=== PATIENT | female | born 1965 | race Caucasian/White ===

== ENCOUNTER 2016-10-29 08:54 | Emergency (ER) | payer MEDICARE, OTHER ==
[~2016-10-29] VITALS: Ht 162.6 cm; Wt 90.0 kg
[~2016-10-29 08:54] MED LIST: ALBU8.5H3 IH; BECL8.7A6; CLON1TAB3 PO; IBUP-1547 PO; OLAN10TA3 PO; SIMV-260 PO; TIOT185 IH; TRIL8 GT
[2016-10-29] MEDS ORDERED: FLUP5 PO (09:26)
[2016-10-29] MEDS ORDERED: DIVA500T35 PO (09:26)
[2016-10-29] MEDS ORDERED: FAMO20 PO ×2 (09:26)
[2016-10-29] MEDS ORDERED: ACET-2247 PO (09:26)
[2016-10-29] MEDS ORDERED: DIPH25 PO (09:26)
[2016-10-29] MEDS ORDERED: LOPE2 PO (09:26)
[2016-10-29 09:28] VITALS: BP 121/79
[2016-10-29] MEDS ORDERED: IPRATROPIUM BROMIDE 0.5 MG/2.5 ML NEB SOLUTION NEB ONE (09:30)
[2016-10-29] MEDS ORDERED: ALBUTEROL SULFATE 2.5 MG/0.5 ML NEB SOLUTION NEB ONE (09:30)
[2016-10-29] MEDS ORDERED: PredniSONE 20 MG TABLET PO ONE (09:30)
== END 2016-10-29 10:11 | disposition left against medical advice (07) ==
LOC: EMS 08:56
DX: J44.9 Chronic obstructive pulmonary disease, unspecified (principal); F17.210 Nicotine dependence, cigarettes, uncomplicated; Z90.49 Acquired absence of other specified parts of digestive tract; Z98.84 Bariatric surgery status; Z88.1 Allergy status to other antibiotic agents; Z91.013 Allergy to seafood
CPT/HCPCS: 99283; J7512

== ENCOUNTER 2016-11-25 17:15 | Emergency (ER) | payer MEDICARE, OTHER ==
[~2016-11-25] VITALS: Ht 157.5 cm; Wt 81.8 kg
[~2016-11-25 17:15] MED LIST changes: +ACET-2247 PO; -BECL8.7A6; +BECL8.7A6 IH; +DIPH25 PO; +DIVA500T35 PO; +FAMO20 PO; -IBUP-1547 PO; +LOPE2 PO; -SIMV-260 PO; -TRIL8 GT; +TRIL8 PO
[2016-11-25] MEDS ORDERED: ALBUTEROL SULFATE 2.5 MG/0.5 ML NEB SOLUTION NEB ONE (19:15)
[2016-11-25] MEDS ORDERED: DiphenhydrAMINE HCL 25 MG CAPSULE PO ONE (19:15)
[2016-11-25] MEDS ORDERED: IPRATROPIUM BROMIDE 0.5 MG/2.5 ML NEB SOLUTION NEB ONE (19:15)
[2016-11-25] MEDS ORDERED: ClonazePAM 1 MG TABLET PO ONE (19:15)
[2016-11-25] MEDS ORDERED: PredniSONE 20 MG TABLET PO ONE (19:15)
[2016-11-25] MEDS ORDERED: 0.9% SODIUM CHLORIDE 5 ML NEB SOLUTION NEB ONE (20:50)
[2016-11-25 21:09] VITALS: BP 126/75
== END 2016-11-25 21:11 | disposition home or self-care (01) ==
LOC: EMS 17:16
DX: J45.901 Unspecified asthma with (acute) exacerbation (principal); F41.9 Anxiety disorder, unspecified; F17.210 Nicotine dependence, cigarettes, uncomplicated; Z76.0 Encounter for issue of repeat prescription; Z88.1 Allergy status to other antibiotic agents; Z88.8 Allergy status to other drugs, medicaments and biological substances; Z91.013 Allergy to seafood
CPT/HCPCS: 71010; 94640; 99284; 99406; J7512

== ENCOUNTER 2016-12-09 21:27 | Emergency (ER) | payer MEDICARE, OTHER ==
[~2016-12-09] VITALS: Ht 162.6 cm; Wt 90.9 kg
[~2016-12-09 21:27] MED LIST changes: -LOPE2 PO
[2016-12-09] MEDS ORDERED: TraMADol HCL 50 MG TABLET PO ONE (22:30)
[2016-12-09 23:00] VITALS: BP 131/84
== END 2016-12-09 23:08 | disposition home or self-care (01) ==
LOC: EMS 21:29
DX: M25.561 Pain in right knee (principal); F31.9 Bipolar disorder, unspecified; G89.29 Other chronic pain; F17.210 Nicotine dependence, cigarettes, uncomplicated; J44.9 Chronic obstructive pulmonary disease, unspecified; F41.9 Anxiety disorder, unspecified; Z90.49 Acquired absence of other specified parts of digestive tract; X58.XXXA Exposure to other specified factors, initial encounter; Y93.9 Activity, unspecified; Y92.9 Unspecified place or not applicable; Y99.9 Unspecified external cause status
CPT/HCPCS: 99283; 99406

== ENCOUNTER 2016-12-16 20:05 | Emergency (ER) | payer MEDICARE, OTHER ==
[~2016-12-16] VITALS: Ht 162.6 cm; Wt 100.0 kg
[2016-12-16] MEDS ORDERED: ALBUTEROL SULFATE 5 MG/ML 20 ML NEB SOLN [BULK] NEB ONE (20:30)
[2016-12-16] MEDS ORDERED: IPRATROPIUM BROMIDE 0.5 MG/2.5 ML NEB SOLUTION NEB ONE (20:30)
[2016-12-16] MEDS ORDERED: 0.9% SODIUM CHLORIDE 5 ML NEB SOLUTION NEB ONE (20:32)
[2016-12-16 20:56] LABS: BASOPHILS # (AUTO) 0.04 K/uL (0.00-0.20); BASOPHILS % (AUTO) 0.4 % (0.0-2.0); EOSINOPHILS # (AUTO) 0.08 K/uL (0.00-0.70); EOSINOPHILS % (AUTO) 0.85 % (1.0-6.0); HEMOGLOBIN 14.8 g/dL (12.0-16.0); LYMPHOCYTES # (AUTO) 3.7 K/uL (1.0-4.8); LYMPHOCYTES % (AUTO) 38.4 % (22.0-44.0); MEAN CORPUSCULAR HEMOGLOBIN 31.2 pg (26.0-34.0); MEAN CORPUSCULAR HGB CONC 33.6 G/dL (31.0-37.0); MEAN CORPUSCULAR VOLUME 93 fL (80-100); MONOCYTES # (AUTO) 0.8 K/uL (0.1-1.0); NEUTROPHILS % (AUTO) 52.5 % (40.0-70.0); PLATELET COUNT (AUTO) 263 K/uL (150-450); RED BLOOD CELL COUNT(AUTO) 4.74 MIL/uL (4.00-5.20); RED CELL DISTRIBUTION WIDTH 15.2 % (11.5-14.5); WHITE BLOOD COUNT (AUTO) 9.6 K/uL (4.5-11.0)
[2016-12-16 21:13] LABS: ANION GAP 6 mmol/L (8-16); CARBON DIOXIDE 34 mmol/L (22-29); CHLORIDE 97 mmol/L (98-107); CREATININE 0.77 mg/dL (0.60-1.30); GLOMERULAR FILTR. RATE CALC > 60 mL/min (>60); POTASSIUM 3.2 mmol/L (3.5-5.1); SODIUM SERUM 137 mmol/L (136-145); UREA NITROGEN, BLOOD 6 mg/dL (7-18)
[2016-12-16 21:17] LABS: ALANINE AMINOTRANSFERASE 17 U/L (12-78); ALBUMIN 3.1 g/dL (3.4-5.0); ASPARTATE AMINOTRANSFERASE 13 U/L (15-37); BILIRUBIN,TOTAL 0.3 mg/dL (0.1-1.0); TOTAL PROTEIN, SERUM 7.1 g/dL (6.4-8.2)
[2016-12-16] MEDS ORDERED: POTASSIUM CHLORIDE 20 MEQ ER TABLET PO ONE (21:30)
[2016-12-16 21:34] VITALS: BP 132/77
== END 2016-12-16 21:36 | disposition home or self-care (01) ==
LOC: EMS 20:07
DX: J44.9 Chronic obstructive pulmonary disease, unspecified (principal); J45.909 Unspecified asthma, uncomplicated; F17.210 Nicotine dependence, cigarettes, uncomplicated; I48.91 Unspecified atrial fibrillation; Z98.84 Bariatric surgery status; Z88.8 Allergy status to other drugs, medicaments and biological substances; Z88.1 Allergy status to other antibiotic agents; Z91.013 Allergy to seafood
CPT/HCPCS: 93005; 94644; 99285

== ENCOUNTER 2017-09-09 05:22 | Inpatient (IN) | payer MEDICARE, MEDICAID ==
[~2017-09-09] VITALS: Ht 162.6 cm; Wt 80.7 kg
[2017-09-09 06:06] LABS: BASOPHILS % (AUTO) 0.3 % (0.0-2.0); EOSINOPHILS % (AUTO) 0 % (1.0-6.0); HEMATOCRIT 43.8 % (36-46); HEMOGLOBIN 15.3 g/dL (12.0-16.0); LYMPHOCYTES # (AUTO) 1.2 K/uL (1.0-4.8); LYMPHOCYTES % (AUTO) 10.3 % (22.0-44.0); MEAN CORPUSCULAR HEMOGLOBIN 32.3 pg (26.0-34.0); MEAN CORPUSCULAR HGB CONC 34.9 G/dL (31.0-37.0); MEAN CORPUSCULAR VOLUME 93 fL (80-100); MONOCYTES # (AUTO) 0.5 K/uL (0.1-1.0); MONOCYTES % (AUTO) 4.2 % (2.0-9.0); NEUTROPHILS # (AUTO) 9.7 K/uL (1.8-7.7); PLATELET COUNT (AUTO) 328 K/uL (150-450); RED BLOOD CELL COUNT(AUTO) 4.73 MIL/uL (4.00-5.20); RED CELL DISTRIBUTION WIDTH 13.5 % (11.5-14.5)
[2017-09-09 06:07] LABS: NEUTROPHILS % (AUTO) 85.2 % (40.0-70.0)
[2017-09-09 06:11] LABS: AMPHET/METH SCREEN,URINE NEGATIVE (NEGATIVE); BARBITURATE SCREEN, URINE NEGATIVE (NEGATIVE); BENZODIAZEPINES SCREEN,URINE NEGATIVE (NEGATIVE); CANNABINOID SCREEN,URINE NEGATIVE (NEGATIVE); COCAINE SCREEN,URINE NEGATIVE (NEGATIVE); METHADONE SCREEN, URINE NEGATIVE (NEGATIVE); OPIATE SCREEN,URINE NEGATIVE (NEGATIVE)
[2017-09-09 06:12] LABS: PHENCYCLIDINE SCREEN,URINE NEGATIVE (NEGATIVE)
[2017-09-09 06:18] LABS: ANION GAP 5 mmol/L (8-16); CALCIUM, TOTAL 9.8 mg/dL (8.8-10.5); CARBON DIOXIDE 32 mmol/L (22-29); CHLORIDE 100 mmol/L (98-107); CREATININE 0.88 mg/dL (0.60-1.30); GLOMERULAR FILTR. RATE CALC > 60 mL/min (>60); GLUCOSE,RANDOM 98 mg/dL (70-110); POTASSIUM 4.1 mmol/L (3.5-5.1); SODIUM SERUM 137 mmol/L (136-145); UREA NITROGEN, BLOOD 15 mg/dL (7-18)
[2017-09-09 06:23] LABS: ALANINE AMINOTRANSFERASE 38 U/L (12-78); ALBUMIN 3.3 g/dL (3.4-5.0); ALKALINE PHOSPHATASE 59 U/L (46-116); ASPARTATE AMINOTRANSFERASE 16 U/L (15-37); BILIRUBIN,TOTAL 0.2 mg/dL (0.1-1.0); TOTAL PROTEIN, SERUM 7.1 g/dL (6.4-8.2)
[2017-09-09 06:46] LABS: VALPROIC ACID 26 mcg/mL (50-100)
[2017-09-09 09:08] LABS: APPEARANCE,URINE CLOUDY (CLEAR); BILIRUBIN,URINE NEGATIVE (NEGATIVE); GLUCOSE, URINE (UA) NEGATIVE (NEGATIVE); KETONES,URINE NEGATIVE (NEGATIVE); LEUKOCYTE ESTERASE ,URINE SMALL (NEGATIVE); NITRATE,URINE NEGATIVE (NEGATIVE); OCCULT BLOOD,URINE NEGATIVE (NEGATIVE); PROTEIN,URINE SEE CONFIRM (NEGATIVE); UROBILINOGEN,URINE 0.2 mg/dL (<=1.0)
[2017-09-09 09:23] LABS: BACTERIA,URINE None Seen /HPF (None Seen); RBC,URINE None Seen /HPF (0-2); SQUAMOUS EPITHELIAL CELL,UR Few /LPF (None Seen); SULFOSALICYLIC ACID,URINE Trace (Negative)
[2017-09-09] MEDS ORDERED: ALBUTEROL SULFATE 2.5 MG/0.5 ML NEB SOLUTION NEB ONE (11:00)
[2017-09-09] MEDS ORDERED: IPRATROPIUM BROMIDE 0.5 MG/2.5 ML NEB SOLUTION NEB ONE (11:00)
[2017-09-09] MEDS: DiphenhydrAMINE HCL 25 MG CAPSULE PO PRN (14:23)
[2017-09-09] MEDS: QUEtiapine FUMARATE 100 MG TABLET PO PRN ×2 (14:23→19:30)
[2017-09-09] MEDS ORDERED: DiphenhydrAMINE HCL 50 MG/ML VIAL IM ONE (18:00)
[2017-09-09 18:30] VITALS: BP 125/88
[2017-09-09] MEDS: IPRATROPIUM BROMIDE 0.5 MG/2.5 ML NEB SOLUTION NEB PRN (19:25)
[2017-09-09] MEDS: ALBUTEROL SULFATE 2.5 MG/0.5 ML NEB SOLUTION NEB PRN (19:25)
[2017-09-10 01:20] VITALS: BP 123/73
[2017-09-10] MEDS: IPRATROPIUM BROMIDE 0.5 MG/2.5 ML NEB SOLUTION NEB PRN ×5 (01:42→23:12)
[2017-09-10] MEDS: ALBUTEROL SULFATE 2.5 MG/0.5 ML NEB SOLUTION NEB PRN ×5 (01:42→23:12)
[2017-09-10] MEDS: ALBUTEROL SULFATE HFA 90 MCG/PUFF 8 GM INHALER IH PRN ×3 (02:56→14:57)
[2017-09-10] MEDS: DiphenhydrAMINE HCL 25 MG CAPSULE PO PRN ×2 (06:29→16:23)
[2017-09-10 07:31] LABS: CHOL/HDL RATIO 2.6 (3.9-5.7); FREE T4 (FREE THYROXINE) 0.91 ng/dL (0.76-1.46); THYROID STIMULATING HORMONE 7.94 uIU/mL (0.36-3.74)
[2017-09-10] MEDS ORDERED: PETROLATUM,WHITE 71 GM JELLY TP PRN (08:30)
[2017-09-10] MEDS ORDERED: BENZOCAINE/MENTHOL LOZENGE MM PRN (08:30)
[2017-09-10] MEDS ORDERED: CloNIDine HCL 0.1 MG TABLET PO PRN (08:30)
[2017-09-10] MEDS ORDERED: MAG HYDROX/AL HYDROX/SIMETH ES 30 ML SUSPENSION UDCUP PO PRN (08:30)
[2017-09-10] MEDS ORDERED: BACITRACIN 28.4 GM OINTMENT TP PRN (08:30)
[2017-09-10] MEDS ORDERED: BENZOCAINE/MENTHOL LOZENGE [8 LOZENGES/PACKET] MM PRN (08:38)
[2017-09-10] MEDS: BECLOMETHASONE DIPR 40 MCG/PUFF 8.7 GM INHALER IH SCH ×2 (08:51→16:24)
[2017-09-10] MEDS: TIOTROPIUM BROMIDE 18 MCG/INH HANDIHALER [5] IH SCH (08:51)
[2017-09-10] MEDS: FAMOTIDINE 20 MG TABLET PO SCH (08:52)
[2017-09-10 09:09] VITALS: BP 108/65
[2017-09-10] MEDS: PERPHENAZINE 8 MG TABLET PO SCH ×2 (09:15→16:28)
[2017-09-10 16:38] VITALS: BP 125/75
[2017-09-10 19:26] VITALS: BP 108/64
[2017-09-10] MEDS: ACETAMINOPHEN 325 MG TABLET PO PRN (19:26)
[2017-09-10] MEDS: DIVALPROEX SODIUM 500 MG ER TABLET PO SCH (20:23)
[2017-09-10] MEDS: OLANZapine 10 MG TABLET PO SCH (20:23)
[2017-09-10] MEDS: MAGNESIUM HYDROXIDE SUSPENSION 30 ML UDCUP PO PRN (20:24)
[2017-09-11 00:07] VITALS: BP 109/80
[2017-09-11] MEDS: DiphenhydrAMINE HCL 25 MG CAPSULE PO PRN ×3 (00:09→22:48)
[2017-09-11] MEDS: FAMOTIDINE 20 MG TABLET PO SCH (08:45)
[2017-09-11] MEDS: DIVALPROEX SODIUM 500 MG ER TABLET PO SCH ×2 (08:45→20:12)
[2017-09-11] MEDS: BECLOMETHASONE DIPR 40 MCG/PUFF 8.7 GM INHALER IH SCH ×2 (08:58→18:39)
[2017-09-11] MEDS: TIOTROPIUM BROMIDE 18 MCG/INH HANDIHALER [5] IH SCH (08:58)
[2017-09-11] MEDS: NICOTINE 21 MG/24 HOUR PATCH TD SCH (08:59)
[2017-09-11] MEDS: PERPHENAZINE 8 MG TABLET PO SCH ×3 (09:00→19:03)
[2017-09-11 09:27] VITALS: BP 142/85
[2017-09-11] MEDS: LOPERAMIDE HCL 2 MG CAPSULE PO PRN (10:52)
[2017-09-11] MEDS: QUEtiapine FUMARATE 100 MG TABLET PO PRN (10:52)
[2017-09-11] MEDS ORDERED: FluPHENAZine HCL 2.5 MG/ML INJ IM PRN ×2 (12:30→12:45)
[2017-09-11] MEDS: ALBUTEROL SULFATE HFA 90 MCG/PUFF 8 GM INHALER IH PRN ×2 (14:29→19:31)
[2017-09-11] MEDS: IPRATROPIUM BROMIDE 0.5 MG/2.5 ML NEB SOLUTION NEB PRN ×3 (14:43→19:48)
[2017-09-11] MEDS: ALBUTEROL SULFATE 2.5 MG/0.5 ML NEB SOLUTION NEB PRN ×3 (14:43→19:48)
[2017-09-11] MEDS: ACETAMINOPHEN 325 MG TABLET PO PRN ×3 (15:00→23:44)
[2017-09-11 15:10] VITALS: BP 126/88
[2017-09-11 16:55] VITALS: BP 110/82
[2017-09-11 19:01] VITALS: BP 114/80
[2017-09-11] MEDS: OLANZapine 10 MG TABLET PO SCH (20:12)
[2017-09-11 23:40] VITALS: BP 115/79
[2017-09-12] MEDS: ALBUTEROL SULFATE HFA 90 MCG/PUFF 8 GM INHALER IH PRN ×5 (00:36→22:55)
[2017-09-12] MEDS: ZOLPIDEM TARTRATE 10 MG TABLET PO PRN (00:43)
[2017-09-12] MEDS: ALBUTEROL SULFATE 2.5 MG/0.5 ML NEB SOLUTION NEB PRN ×3 (01:09→18:57)
[2017-09-12] MEDS: IPRATROPIUM BROMIDE 0.5 MG/2.5 ML NEB SOLUTION NEB PRN ×3 (01:09→18:57)
[2017-09-12] MEDS: FAMOTIDINE 20 MG TABLET PO SCH (09:55)
[2017-09-12] MEDS: PERPHENAZINE 8 MG TABLET PO SCH ×2 (09:55→15:59)
[2017-09-12] MEDS: DIVALPROEX SODIUM 500 MG ER TABLET PO SCH ×2 (09:55→20:02)
[2017-09-12] MEDS: NICOTINE 21 MG/24 HOUR PATCH TD SCH (09:56)
[2017-09-12] MEDS: TIOTROPIUM BROMIDE 18 MCG/INH HANDIHALER [5] IH SCH (09:58)
[2017-09-12] MEDS: BECLOMETHASONE DIPR 40 MCG/PUFF 8.7 GM INHALER IH SCH ×2 (09:59→15:58)
[2017-09-12] MEDS ORDERED: ClonazePAM 0.5 MG TABLET PO ONE (17:15)
[2017-09-12] MEDS: DiphenhydrAMINE HCL 25 MG CAPSULE PO PRN (17:26)
[2017-09-12 18:24] VITALS: BP 128/84
[2017-09-12] MEDS: OLANZapine 10 MG TABLET PO SCH (20:02)
[2017-09-12 20:03] VITALS: BP 125/78
[2017-09-12] MEDS: ACETAMINOPHEN 325 MG TABLET PO PRN (20:03)
[2017-09-12] MEDS: MAGNESIUM HYDROXIDE SUSPENSION 30 ML UDCUP PO PRN (20:18)
[2017-09-13 00:02] VITALS: BP 113/71
[2017-09-13] MEDS: ZOLPIDEM TARTRATE 10 MG TABLET PO PRN (00:05)
[2017-09-13] MEDS: LEVOTHYROXINE SODIUM 25 MCG TABLET PO SCH (06:55)
[2017-09-13 09:19] VITALS: BP 103/58
[2017-09-13] MEDS: DIVALPROEX SODIUM 500 MG ER TABLET PO SCH ×2 (11:46→20:07)
[2017-09-13] MEDS: FAMOTIDINE 20 MG TABLET PO SCH (11:46)
[2017-09-13] MEDS: PERPHENAZINE 8 MG TABLET PO SCH ×2 (11:46→17:05)
[2017-09-13] MEDS: ALBUTEROL SULFATE HFA 90 MCG/PUFF 8 GM INHALER IH PRN (11:52)
[2017-09-13] MEDS: TIOTROPIUM BROMIDE 18 MCG/INH HANDIHALER [5] IH SCH (11:52)
[2017-09-13] MEDS: BECLOMETHASONE DIPR 40 MCG/PUFF 8.7 GM INHALER IH SCH ×2 (11:52→17:06)
[2017-09-13] MEDS: NICOTINE 21 MG/24 HOUR PATCH TD SCH (11:53)
[2017-09-13] MEDS ORDERED: AZITHROMYCIN 250 MG TABLET PO ONE (12:15)
[2017-09-13] MEDS ORDERED: 0.9% SODIUM CHLORIDE 5 ML NEB SOLUTION NEB ONE (13:54)
[2017-09-13] MEDS: ALBUTEROL SULFATE 2.5 MG/0.5 ML NEB SOLUTION NEB PRN ×2 (13:57→19:44)
[2017-09-13] MEDS: DiphenhydrAMINE HCL 25 MG CAPSULE PO PRN (17:51)
[2017-09-13] MEDS: IPRATROPIUM BROMIDE 0.5 MG/2.5 ML NEB SOLUTION NEB PRN (19:45)
[2017-09-13] MEDS: OLANZapine 10 MG TABLET PO SCH (20:07)
[2017-09-13 20:27] VITALS: BP 105/72
[2017-09-14] MEDS: ALBUTEROL SULFATE HFA 90 MCG/PUFF 8 GM INHALER IH PRN ×3 (03:00→18:12)
[2017-09-14] MEDS: IPRATROPIUM BROMIDE 0.5 MG/2.5 ML NEB SOLUTION NEB PRN ×3 (03:08→20:43)
[2017-09-14] MEDS: ALBUTEROL SULFATE 2.5 MG/0.5 ML NEB SOLUTION NEB PRN ×3 (03:08→20:43)
[2017-09-14] MEDS: LEVOTHYROXINE SODIUM 25 MCG TABLET PO SCH (06:37)
[2017-09-14] MEDS: FAMOTIDINE 20 MG TABLET PO SCH (12:04)
[2017-09-14] MEDS: PERPHENAZINE 8 MG TABLET PO SCH ×2 (12:04→16:10)
[2017-09-14] MEDS: DIVALPROEX SODIUM 500 MG ER TABLET PO SCH ×2 (12:04→20:31)
[2017-09-14] MEDS: BECLOMETHASONE DIPR 40 MCG/PUFF 8.7 GM INHALER IH SCH ×2 (12:05→17:17)
[2017-09-14] MEDS: TIOTROPIUM BROMIDE 18 MCG/INH HANDIHALER [5] IH SCH (12:05)
[2017-09-14] MEDS: AZITHROMYCIN 250 MG TABLET PO SCH (12:05)
[2017-09-14] MEDS: NICOTINE 21 MG/24 HOUR PATCH TD SCH (12:11)
[2017-09-14] MEDS: DiphenhydrAMINE HCL 25 MG CAPSULE PO PRN ×2 (13:31→20:33)
[2017-09-14 13:44] VITALS: BP 119/68
[2017-09-14] MEDS: ACETAMINOPHEN 325 MG TABLET PO PRN (13:46)
[2017-09-14 17:23] VITALS: BP 111/83
[2017-09-14] MEDS: OLANZapine 10 MG TABLET PO SCH (20:32)
[2017-09-14] MEDS: ONDANSETRON HCL 4 MG TABLET PO PRN (20:33)
[2017-09-14] MEDS: MAGNESIUM HYDROXIDE SUSPENSION 30 ML UDCUP PO PRN (22:03)
[2017-09-15] MEDS: ALBUTEROL SULFATE HFA 90 MCG/PUFF 8 GM INHALER IH PRN (00:44)
[2017-09-15] MEDS: ZOLPIDEM TARTRATE 10 MG TABLET PO PRN ×2 (01:06→23:28)
[2017-09-15 01:44] VITALS: BP 108/75
[2017-09-15] MEDS: IPRATROPIUM BROMIDE 0.5 MG/2.5 ML NEB SOLUTION NEB PRN ×3 (02:46→23:56)
[2017-09-15] MEDS: ALBUTEROL SULFATE 2.5 MG/0.5 ML NEB SOLUTION NEB PRN ×3 (02:46→23:56)
[2017-09-15] MEDS: LEVOTHYROXINE SODIUM 25 MCG TABLET PO SCH (06:52)
[2017-09-15] MEDS: AZITHROMYCIN 250 MG TABLET PO SCH (12:20)
[2017-09-15] MEDS: DIVALPROEX SODIUM 500 MG ER TABLET PO SCH ×2 (12:20→20:06)
[2017-09-15] MEDS: NICOTINE 21 MG/24 HOUR PATCH TD SCH (12:21)
[2017-09-15] MEDS: PERPHENAZINE 8 MG TABLET PO SCH ×2 (12:22→16:04)
[2017-09-15] MEDS: FAMOTIDINE 20 MG TABLET PO SCH (12:22)
[2017-09-15] MEDS: BECLOMETHASONE DIPR 40 MCG/PUFF 8.7 GM INHALER IH SCH ×2 (12:22→16:05)
[2017-09-15] MEDS: TIOTROPIUM BROMIDE 18 MCG/INH HANDIHALER [5] IH SCH (14:06)
[2017-09-15 16:00] VITALS: BP 112/72
[2017-09-15] MEDS: MAGNESIUM HYDROXIDE SUSPENSION 30 ML UDCUP PO PRN (16:07)
[2017-09-15] MEDS: ACETAMINOPHEN 325 MG TABLET PO PRN (16:08)
[2017-09-15 16:55] VITALS: BP 107/79
[2017-09-15 17:00] VITALS: BP 116/72
[2017-09-15] MEDS: DiphenhydrAMINE HCL 25 MG CAPSULE PO PRN (19:20)
[2017-09-15] MEDS: OLANZapine 10 MG TABLET PO SCH (20:06)
[2017-09-16 00:45] VITALS: BP 106/63
[2017-09-16] MEDS: LOPERAMIDE HCL 2 MG CAPSULE PO PRN (00:46)
[2017-09-16] MEDS: ALBUTEROL SULFATE HFA 90 MCG/PUFF 8 GM INHALER IH PRN ×3 (05:38→21:22)
[2017-09-16] MEDS: LEVOTHYROXINE SODIUM 25 MCG TABLET PO SCH (06:48)
[2017-09-16] MEDS: ALBUTEROL SULFATE 2.5 MG/0.5 ML NEB SOLUTION NEB PRN ×2 (07:00→18:44)
[2017-09-16] MEDS: IPRATROPIUM BROMIDE 0.5 MG/2.5 ML NEB SOLUTION NEB PRN ×2 (07:00→18:44)
[2017-09-16] MEDS: PERPHENAZINE 8 MG TABLET PO SCH ×2 (08:03→16:45)
[2017-09-16] MEDS: AZITHROMYCIN 250 MG TABLET PO SCH (08:03)
[2017-09-16] MEDS: DIVALPROEX SODIUM 500 MG ER TABLET PO SCH ×2 (08:03→20:13)
[2017-09-16] MEDS: TIOTROPIUM BROMIDE 18 MCG/INH HANDIHALER [5] IH SCH (08:03)
[2017-09-16] MEDS: BECLOMETHASONE DIPR 40 MCG/PUFF 8.7 GM INHALER IH SCH ×2 (08:03→16:46)
[2017-09-16] MEDS: FAMOTIDINE 20 MG TABLET PO SCH (08:03)
[2017-09-16 08:21] VITALS: BP 122/61
[2017-09-16] MEDS: NICOTINE 21 MG/24 HOUR PATCH TD SCH (09:12)
[2017-09-16 19:55] VITALS: BP 133/94
[2017-09-16] MEDS: ACETAMINOPHEN 325 MG TABLET PO PRN (19:56)
[2017-09-16] MEDS: OLANZapine 10 MG TABLET PO SCH (20:13)
[2017-09-16 20:55] VITALS: BP 131/82
[2017-09-16] MEDS: ZOLPIDEM TARTRATE 10 MG TABLET PO PRN (23:04)
[2017-09-17 00:15] VITALS: BP 138/82
[2017-09-17] MEDS: DiphenhydrAMINE HCL 25 MG CAPSULE PO PRN ×2 (00:18→14:34)
[2017-09-17] MEDS: IPRATROPIUM BROMIDE 0.5 MG/2.5 ML NEB SOLUTION NEB PRN ×2 (00:21→15:14)
[2017-09-17] MEDS: ALBUTEROL SULFATE 2.5 MG/0.5 ML NEB SOLUTION NEB PRN ×2 (00:21→15:14)
[2017-09-17] MEDS: LEVOTHYROXINE SODIUM 25 MCG TABLET PO SCH (06:13)
[2017-09-17] MEDS: AZITHROMYCIN 250 MG TABLET PO SCH (10:13)
[2017-09-17] MEDS: PERPHENAZINE 8 MG TABLET PO SCH ×2 (10:13→16:03)
[2017-09-17] MEDS: FAMOTIDINE 20 MG TABLET PO SCH (10:13)
[2017-09-17] MEDS: DIVALPROEX SODIUM 500 MG ER TABLET PO SCH ×2 (10:13→20:27)
[2017-09-17] MEDS: BECLOMETHASONE DIPR 40 MCG/PUFF 8.7 GM INHALER IH SCH ×2 (10:21→16:04)
[2017-09-17] MEDS: TIOTROPIUM BROMIDE 18 MCG/INH HANDIHALER [5] IH SCH (10:21)
[2017-09-17] MEDS: ALBUTEROL SULFATE HFA 90 MCG/PUFF 8 GM INHALER IH PRN ×3 (10:22→21:06)
[2017-09-17] MEDS: NICOTINE 21 MG/24 HOUR PATCH TD SCH (10:23)
[2017-09-17] MEDS ORDERED: TUBERCULIN, PURIFIED PROTEIN DERIVATIVE 5 TU/0.1 ML SYG ID ONE (16:15)
[2017-09-17 17:00] VITALS: BP 147/77
[2017-09-17] MEDS: QUEtiapine FUMARATE 100 MG TABLET PO PRN (19:29)
[2017-09-17] MEDS: OLANZapine 10 MG TABLET PO SCH (20:27)
[2017-09-17] MEDS: ZOLPIDEM TARTRATE 10 MG TABLET PO PRN (21:49)
[2017-09-18] VITALS: BP 138/81
[2017-09-18] MEDS: IBUPROFEN 600 MG TABLET PO PRN (00:01)
[2017-09-18] MEDS: DiphenhydrAMINE HCL 25 MG CAPSULE PO PRN ×3 (00:08→19:44)
[2017-09-18] MEDS: ALBUTEROL SULFATE 2.5 MG/0.5 ML NEB SOLUTION NEB PRN ×2 (00:43→23:48)
[2017-09-18] MEDS: IPRATROPIUM BROMIDE 0.5 MG/2.5 ML NEB SOLUTION NEB PRN ×2 (00:43→23:48)
[2017-09-18] MEDS: LEVOTHYROXINE SODIUM 50 MCG TABLET PO SCH (06:56)
[2017-09-18] MEDS: TIOTROPIUM BROMIDE 18 MCG/INH HANDIHALER [5] IH SCH (10:00)
[2017-09-18] MEDS: BECLOMETHASONE DIPR 40 MCG/PUFF 8.7 GM INHALER IH SCH ×2 (10:00→16:28)
[2017-09-18] MEDS: FAMOTIDINE 20 MG TABLET PO SCH (10:01)
[2017-09-18] MEDS: DIVALPROEX SODIUM 500 MG ER TABLET PO SCH ×2 (10:01→20:00)
[2017-09-18] MEDS: PERPHENAZINE 8 MG TABLET PO SCH ×2 (10:01→16:17)
[2017-09-18] MEDS: NICOTINE 21 MG/24 HOUR PATCH TD SCH (10:11)
[2017-09-18] MEDS: ACETAMINOPHEN 325 MG TABLET PO PRN ×3 (13:46→17:53)
[2017-09-18] MEDS: ALBUTEROL SULFATE HFA 90 MCG/PUFF 8 GM INHALER IH PRN ×3 (13:53→21:55)
[2017-09-18 16:31] VITALS: BP 114/74
[2017-09-18 17:50] VITALS: BP 125/74
[2017-09-18 18:50] VITALS: BP 119/68
[2017-09-18] MEDS: OLANZapine 10 MG TABLET PO SCH (20:00)
[2017-09-18] MEDS: ZOLPIDEM TARTRATE 10 MG TABLET PO PRN (21:57)
[2017-09-19 00:45] VITALS: BP 127/88
[2017-09-19] MEDS: DiphenhydrAMINE HCL 25 MG CAPSULE PO PRN ×3 (00:45→16:43)
[2017-09-19 01:45] VITALS: BP 125/57
[2017-09-19] MEDS: LEVOTHYROXINE SODIUM 50 MCG TABLET PO SCH (06:52)
[2017-09-19] MEDS: PERPHENAZINE 8 MG TABLET PO SCH ×2 (10:05→16:31)
[2017-09-19] MEDS: DIVALPROEX SODIUM 500 MG ER TABLET PO SCH ×2 (10:06→20:06)
[2017-09-19] MEDS: FAMOTIDINE 20 MG TABLET PO SCH (10:06)
[2017-09-19] MEDS: BECLOMETHASONE DIPR 40 MCG/PUFF 8.7 GM INHALER IH SCH ×2 (10:07→16:31)
[2017-09-19] MEDS: TIOTROPIUM BROMIDE 18 MCG/INH HANDIHALER [5] IH SCH (10:07)
[2017-09-19] MEDS: ALBUTEROL SULFATE HFA 90 MCG/PUFF 8 GM INHALER IH PRN ×3 (10:09→18:27)
[2017-09-19] MEDS: NICOTINE 21 MG/24 HOUR PATCH TD SCH (10:14)
[2017-09-19 16:40] VITALS: BP 126/71
[2017-09-19] MEDS: ACETAMINOPHEN 325 MG TABLET PO PRN (16:44)
[2017-09-19 17:40] VITALS: BP 128/73
[2017-09-19] MEDS: QUEtiapine FUMARATE 100 MG TABLET PO PRN ×2 (18:27→20:35)
[2017-09-19] MEDS: OLANZapine 10 MG TABLET PO SCH (20:06)
[2017-09-19] MEDS: ZOLPIDEM TARTRATE 10 MG TABLET PO PRN (20:35)
[2017-09-20 01:30] VITALS: BP 124/78
[2017-09-20] MEDS: ALBUTEROL SULFATE HFA 90 MCG/PUFF 8 GM INHALER IH PRN ×2 (03:35→08:35)
[2017-09-20] MEDS: LEVOTHYROXINE SODIUM 50 MCG TABLET PO SCH (06:33)
[2017-09-20] MEDS: DiphenhydrAMINE HCL 25 MG CAPSULE PO PRN ×2 (06:46→12:36)
[2017-09-20] MEDS: PERPHENAZINE 8 MG TABLET PO SCH ×2 (08:33→16:22)
[2017-09-20] MEDS: FAMOTIDINE 20 MG TABLET PO SCH (08:33)
[2017-09-20] MEDS: DIVALPROEX SODIUM 500 MG ER TABLET PO SCH ×2 (08:33→22:00)
[2017-09-20] MEDS: TIOTROPIUM BROMIDE 18 MCG/INH HANDIHALER [5] IH SCH (08:35)
[2017-09-20] MEDS: BECLOMETHASONE DIPR 40 MCG/PUFF 8.7 GM INHALER IH SCH ×2 (08:36→16:22)
[2017-09-20] MEDS ORDERED: FluPHENAZine DECANOATE 25 MG/ML IM SCH (09:00)
[2017-09-20] MEDS: NICOTINE 21 MG/24 HOUR PATCH TD SCH (09:03)
[2017-09-20] MEDS: QUEtiapine FUMARATE 100 MG TABLET PO PRN ×2 (09:39→18:29)
[2017-09-20 10:08] VITALS: BP 138/88
[2017-09-20 20:41] VITALS: BP 119/73
[2017-09-20] MEDS: OLANZapine 10 MG TABLET PO SCH (22:00)
[2017-09-21] MEDS: LEVOTHYROXINE SODIUM 50 MCG TABLET PO SCH (06:53)
[2017-09-21] MEDS: TIOTROPIUM BROMIDE 18 MCG/INH HANDIHALER [5] IH SCH (09:02)
[2017-09-21] MEDS: FAMOTIDINE 20 MG TABLET PO SCH (09:03)
[2017-09-21] MEDS: DIVALPROEX SODIUM 500 MG ER TABLET PO SCH ×2 (09:03→20:11)
[2017-09-21] MEDS: BECLOMETHASONE DIPR 40 MCG/PUFF 8.7 GM INHALER IH SCH ×2 (09:03→16:06)
[2017-09-21] MEDS: PERPHENAZINE 8 MG TABLET PO SCH ×2 (09:03→16:06)
[2017-09-21] MEDS: NICOTINE 21 MG/24 HOUR PATCH TD SCH (09:09)
[2017-09-21] MEDS: IBUPROFEN 600 MG TABLET PO PRN (13:15)
[2017-09-21 13:16] VITALS: BP 135/86
[2017-09-21] MEDS: DiphenhydrAMINE HCL 25 MG CAPSULE PO PRN (15:44)
[2017-09-21 16:00] VITALS: BP 134/76
[2017-09-21] MEDS: ACETAMINOPHEN 325 MG TABLET PO PRN ×2 (16:06→22:34)
[2017-09-21] MEDS: ALBUTEROL SULFATE HFA 90 MCG/PUFF 8 GM INHALER IH PRN (16:48)
[2017-09-21] MEDS: OLANZapine 10 MG TABLET PO SCH (20:11)
[2017-09-21 22:34] VITALS: BP 129/68
[2017-09-22] MEDS: DiphenhydrAMINE HCL 25 MG CAPSULE PO PRN (00:56)
[2017-09-22 03:25] VITALS: BP 127/65
[2017-09-22] MEDS: LEVOTHYROXINE SODIUM 50 MCG TABLET PO SCH (06:37)
[2017-09-22 06:38] LABS: GLUCOMETER DEV NAME(LOC) 3EI B; GLUCOSE,POINT OF CARE 97 MG/DL (70-110)
[2017-09-22] MEDS: PERPHENAZINE 8 MG TABLET PO SCH ×2 (08:54→16:58)
[2017-09-22] MEDS: FAMOTIDINE 20 MG TABLET PO SCH (08:54)
[2017-09-22] MEDS: BECLOMETHASONE DIPR 40 MCG/PUFF 8.7 GM INHALER IH SCH ×2 (08:55→16:58)
[2017-09-22] MEDS: DIVALPROEX SODIUM 500 MG ER TABLET PO SCH ×2 (08:55→20:51)
[2017-09-22] MEDS: TIOTROPIUM BROMIDE 18 MCG/INH HANDIHALER [5] IH SCH (08:55)
[2017-09-22] MEDS: NICOTINE 21 MG/24 HOUR PATCH TD SCH (08:57)
[2017-09-22 09:19] VITALS: BP 134/91
[2017-09-22] MEDS: ACETAMINOPHEN 325 MG TABLET PO PRN ×2 (10:51→14:53)
[2017-09-22] MEDS: OLANZapine 10 MG TABLET PO SCH (20:51)
[2017-09-23 01:30] VITALS: BP 108/69
[2017-09-23] MEDS: LEVOTHYROXINE SODIUM 50 MCG TABLET PO SCH (06:36)
[2017-09-23 08:00] VITALS: BP 107/66
[2017-09-23] MEDS: ONDANSETRON HCL 4 MG TABLET PO PRN (08:12)
[2017-09-23] MEDS: TIOTROPIUM BROMIDE 18 MCG/INH HANDIHALER [5] IH SCH (10:30)
[2017-09-23] MEDS: ALBUTEROL SULFATE HFA 90 MCG/PUFF 8 GM INHALER IH PRN (10:30)
[2017-09-23] MEDS: BECLOMETHASONE DIPR 40 MCG/PUFF 8.7 GM INHALER IH SCH ×2 (10:30→18:26)
[2017-09-23] MEDS: PERPHENAZINE 8 MG TABLET PO SCH ×2 (10:31→17:40)
[2017-09-23] MEDS: FAMOTIDINE 20 MG TABLET PO SCH (10:31)
[2017-09-23] MEDS: DIVALPROEX SODIUM 500 MG ER TABLET PO SCH ×2 (10:31→21:45)
[2017-09-23] MEDS: NICOTINE 21 MG/24 HOUR PATCH TD SCH (10:32)
[2017-09-23] MEDS: DiphenhydrAMINE HCL 25 MG CAPSULE PO PRN (12:22)
[2017-09-23] MEDS: LOPERAMIDE HCL 2 MG CAPSULE PO PRN ×2 (13:47→22:50)
[2017-09-23 16:00] VITALS: BP 108/80
[2017-09-23] MEDS: OLANZapine 10 MG TABLET PO SCH (21:45)
[2017-09-23] MEDS: ACETAMINOPHEN 325 MG TABLET PO PRN (21:46)
[2017-09-24 05:03] VITALS: BP 108/75
[2017-09-24] MEDS: ACETAMINOPHEN 325 MG TABLET PO PRN ×2 (05:03→21:49)
[2017-09-24] MEDS: LEVOTHYROXINE SODIUM 50 MCG TABLET PO SCH (06:57)
[2017-09-24] MEDS: NICOTINE 21 MG/24 HOUR PATCH TD SCH (08:45)
[2017-09-24] MEDS: DIVALPROEX SODIUM 500 MG ER TABLET PO SCH ×2 (08:45→21:18)
[2017-09-24] MEDS: PERPHENAZINE 8 MG TABLET PO SCH ×2 (08:45→16:12)
[2017-09-24] MEDS: TIOTROPIUM BROMIDE 18 MCG/INH HANDIHALER [5] IH SCH (08:45)
[2017-09-24] MEDS: FAMOTIDINE 20 MG TABLET PO SCH (08:45)
[2017-09-24] MEDS: BECLOMETHASONE DIPR 40 MCG/PUFF 8.7 GM INHALER IH SCH ×2 (08:45→16:13)
[2017-09-24 09:54] VITALS: BP 110/82
[2017-09-24] MEDS: DiphenhydrAMINE HCL 25 MG CAPSULE PO PRN (18:02)
[2017-09-24] MEDS: LOPERAMIDE HCL 2 MG CAPSULE PO PRN (20:01)
[2017-09-24] MEDS: OLANZapine 10 MG TABLET PO SCH (21:19)
[2017-09-24 21:48] VITALS: BP 114/73
[2017-09-24] MEDS: ALBUTEROL SULFATE 2.5 MG/0.5 ML NEB SOLUTION NEB PRN (22:07)
[2017-09-24] MEDS: IPRATROPIUM BROMIDE 0.5 MG/2.5 ML NEB SOLUTION NEB PRN (22:07)
[2017-09-25 00:01] VITALS: BP 100/74
[2017-09-25] MEDS: DiphenhydrAMINE HCL 25 MG CAPSULE PO PRN (00:03)
[2017-09-25] MEDS: LEVOTHYROXINE SODIUM 50 MCG TABLET PO SCH (06:47)
[2017-09-25 09:31] LABS: BAND NEUTROPHILS % (MANUAL) 0 % (0-5)
[2017-09-25 09:46] LABS: HEMATOCRIT 36.7 % (36-46); HEMOGLOBIN 13.2 g/dL (12.0-16.0); MEAN CORPUSCULAR HEMOGLOBIN 32.2 pg (26.0-34.0); MEAN CORPUSCULAR HGB CONC 35.9 G/dL (31.0-37.0); MEAN CORPUSCULAR VOLUME 90 fL (80-100); PLATELET COUNT (AUTO) 214 K/uL (150-450); RED CELL DISTRIBUTION WIDTH 12.9 % (11.5-14.5)
[2017-09-25 10:23] LABS: EOSINOPHILS % (MANUAL) 1 % (1-6); LYMPHOCYTES % (MANUAL) 41 % (22-44); MONOCYTES % (MANUAL) 5 % (2-9); SEGMENTED NEUTROPHILS % 53 % (40-70)
[2017-09-25] MEDS ORDERED: TUBERCULIN, PURIFIED PROTEIN DERIVATIVE 5 TU/0.1 ML SYG ID ONE (10:30)
[2017-09-25 10:49] LABS: ANION GAP 1 mmol/L (8-16); CARBON DIOXIDE 35 mmol/L (22-29); CHLORIDE 99 mmol/L (98-107); GLUCOSE,RANDOM 81 mg/dL (70-110); POTASSIUM 4.5 mmol/L (3.5-5.1); SODIUM SERUM 135 mmol/L (136-145)
[2017-09-25 10:50] LABS: CALCIUM, TOTAL 9.5 mg/dL (8.8-10.5); CHOL/HDL RATIO 2.7 (3.9-5.7); CHOLESTEROL 112 mg/dL (131-200); CREATININE 0.79 mg/dL (0.60-1.30); GLOMERULAR FILTR. RATE CALC > 60 mL/min (>60); HDL CHOLESTEROL 41 mg/dL (40-60); LDL CHOL (CALC.) 37 mg/dL (0-130); PHOSPHORUS 2.9 mg/dL (2.5-4.9); THYROID STIMULATING HORMONE 6.13 uIU/mL (0.36-3.74); TRIGLYCERIDES 171 mg/dL (15-150); VALPROIC ACID 59 mcg/mL (50-100)
[2017-09-25 11:13] LABS: UREA NITROGEN, BLOOD 10 mg/dL (7-18)
[2017-09-25] MEDS: TIOTROPIUM BROMIDE 18 MCG/INH HANDIHALER [5] IH SCH (11:51)
[2017-09-25] MEDS: DIVALPROEX SODIUM 500 MG ER TABLET PO SCH ×2 (11:52→20:01)
[2017-09-25] MEDS: PERPHENAZINE 8 MG TABLET PO SCH ×2 (11:52→16:28)
[2017-09-25] MEDS: FAMOTIDINE 20 MG TABLET PO SCH (11:53)
[2017-09-25] MEDS: NICOTINE 21 MG/24 HOUR PATCH TD SCH (11:53)
[2017-09-25] MEDS: BECLOMETHASONE DIPR 40 MCG/PUFF 8.7 GM INHALER IH SCH ×2 (11:54→17:45)
[2017-09-25] MEDS: LOPERAMIDE HCL 2 MG CAPSULE PO PRN (13:47)
[2017-09-25] MEDS: ACETAMINOPHEN 325 MG TABLET PO PRN (13:56)
[2017-09-25] MEDS ORDERED: KETOROLAC TROMETHAMINE 30 MG/ML VIAL IM ONE (14:30)
[2017-09-25] MEDS: OLANZapine 10 MG TABLET PO SCH (20:01)
[2017-09-25 21:00] VITALS: BP 121/75
[2017-09-26] MEDS: DiphenhydrAMINE HCL 25 MG CAPSULE PO PRN (00:07)
[2017-09-26] MEDS: ACETAMINOPHEN 325 MG TABLET PO PRN ×2 (00:08→10:09)
[2017-09-26 00:10] VITALS: BP 119/76
[2017-09-26] MEDS: LEVOTHYROXINE SODIUM 50 MCG TABLET PO SCH (06:53)
[2017-09-26] MEDS: DIVALPROEX SODIUM 500 MG ER TABLET PO SCH ×2 (09:27→20:06)
[2017-09-26] MEDS: FAMOTIDINE 20 MG TABLET PO SCH (09:27)
[2017-09-26] MEDS: TIOTROPIUM BROMIDE 18 MCG/INH HANDIHALER [5] IH SCH (09:27)
[2017-09-26] MEDS: PERPHENAZINE 8 MG TABLET PO SCH ×2 (09:27→16:26)
[2017-09-26] MEDS: BECLOMETHASONE DIPR 40 MCG/PUFF 8.7 GM INHALER IH SCH ×2 (09:28→16:27)
[2017-09-26] MEDS: ALBUTEROL SULFATE HFA 90 MCG/PUFF 8 GM INHALER IH PRN (09:28)
[2017-09-26] MEDS: NICOTINE 21 MG/24 HOUR PATCH TD SCH (09:30)
[2017-09-26] MEDS ORDERED: KETOROLAC TROMETHAMINE 30 MG/ML VIAL IM ONE (16:15)
[2017-09-26] MEDS: OLANZapine 10 MG TABLET PO SCH (20:07)
[2017-09-27 00:41] VITALS: BP 115/75
[2017-09-27] MEDS: ZOLPIDEM TARTRATE 10 MG TABLET PO PRN (00:41)
[2017-09-27] MEDS: LEVOTHYROXINE SODIUM 50 MCG TABLET PO SCH (06:39)
[2017-09-27] MEDS: DIVALPROEX SODIUM 500 MG ER TABLET PO SCH ×2 (08:55→20:07)
[2017-09-27] MEDS: BECLOMETHASONE DIPR 40 MCG/PUFF 8.7 GM INHALER IH SCH ×2 (08:57→16:10)
[2017-09-27] MEDS: DiphenhydrAMINE HCL 25 MG CAPSULE PO PRN ×2 (08:57→20:08)
[2017-09-27] MEDS: ALBUTEROL SULFATE HFA 90 MCG/PUFF 8 GM INHALER IH PRN (08:57)
[2017-09-27] MEDS: ACETAMINOPHEN 325 MG TABLET PO PRN (08:57)
[2017-09-27] MEDS: TIOTROPIUM BROMIDE 18 MCG/INH HANDIHALER [5] IH SCH (08:57)
[2017-09-27] MEDS: FAMOTIDINE 20 MG TABLET PO SCH (09:00)
[2017-09-27] MEDS: PERPHENAZINE 8 MG TABLET PO SCH ×2 (09:01→16:10)
[2017-09-27] MEDS: NICOTINE 21 MG/24 HOUR PATCH TD SCH (09:02)
[2017-09-27] MEDS ORDERED: TUBERCULIN, PURIFIED PROTEIN DERIVATIVE 5 TU/0.1 ML SYG ID ONE (10:30)
[2017-09-27 19:39] VITALS: BP 110/71
[2017-09-27] MEDS: OLANZapine 10 MG TABLET PO SCH (20:07)
[2017-09-28 00:05] VITALS: BP 112/60
[2017-09-28] MEDS: QUEtiapine FUMARATE 100 MG TABLET PO PRN (00:05)
[2017-09-28] MEDS: LEVOTHYROXINE SODIUM 50 MCG TABLET PO SCH (06:06)
[2017-09-28 08:00] VITALS: BP 97/43
[2017-09-28] MEDS: DIVALPROEX SODIUM 500 MG ER TABLET PO SCH ×2 (11:39→20:18)
[2017-09-28] MEDS: BECLOMETHASONE DIPR 40 MCG/PUFF 8.7 GM INHALER IH SCH ×2 (11:40→16:17)
[2017-09-28] MEDS: PERPHENAZINE 8 MG TABLET PO SCH ×2 (11:40→16:17)
[2017-09-28] MEDS: ALBUTEROL SULFATE HFA 90 MCG/PUFF 8 GM INHALER IH PRN (11:40)
[2017-09-28] MEDS: FAMOTIDINE 20 MG TABLET PO SCH (11:40)
[2017-09-28] MEDS: TIOTROPIUM BROMIDE 18 MCG/INH HANDIHALER [5] IH SCH (11:40)
[2017-09-28] MEDS: NICOTINE 21 MG/24 HOUR PATCH TD SCH (11:40)
[2017-09-28 17:10] VITALS: BP 118/71
[2017-09-28] MEDS: ACETAMINOPHEN 325 MG TABLET PO PRN ×2 (17:11→23:51)
[2017-09-28 18:10] VITALS: BP 109/64
[2017-09-28] MEDS: OLANZapine 10 MG TABLET PO SCH (20:18)
[2017-09-28] MEDS: LOPERAMIDE HCL 2 MG CAPSULE PO PRN ×2 (21:14→21:16)
[2017-09-28] MEDS: DiphenhydrAMINE HCL 25 MG CAPSULE PO PRN (23:50)
[2017-09-29] VITALS: BP 119/74
[2017-09-29] MEDS: LEVOTHYROXINE SODIUM 50 MCG TABLET PO SCH (06:55)
[2017-09-29] MEDS: FAMOTIDINE 20 MG TABLET PO SCH (09:32)
[2017-09-29] MEDS: NICOTINE 21 MG/24 HOUR PATCH TD SCH (09:33)
[2017-09-29] MEDS: DIVALPROEX SODIUM 500 MG ER TABLET PO SCH ×2 (09:33→20:03)
[2017-09-29] MEDS: PERPHENAZINE 8 MG TABLET PO SCH ×2 (09:33→16:05)
[2017-09-29] MEDS: BECLOMETHASONE DIPR 40 MCG/PUFF 8.7 GM INHALER IH SCH ×2 (09:34→16:05)
[2017-09-29] MEDS: TIOTROPIUM BROMIDE 18 MCG/INH HANDIHALER [5] IH SCH (09:34)
[2017-09-29] MEDS: PALIPERIDONE 3 MG ER TABLET PO SCH (14:01)
[2017-09-29] MEDS: ACETAMINOPHEN 325 MG TABLET PO PRN (16:03)
[2017-09-29 16:07] VITALS: BP 114/75
[2017-09-29] MEDS: OLANZapine 5 MG TABLET PO SCH (20:03)
[2017-09-29] MEDS: DiphenhydrAMINE HCL 25 MG CAPSULE PO PRN (21:02)
[2017-09-30 01:25] VITALS: BP 124/80
[2017-09-30] MEDS: ACETAMINOPHEN 325 MG TABLET PO PRN (01:34)
[2017-09-30] MEDS: LEVOTHYROXINE SODIUM 50 MCG TABLET PO SCH (07:03)
[2017-09-30] MEDS: NICOTINE 21 MG/24 HOUR PATCH TD SCH (09:12)
[2017-09-30] MEDS: FAMOTIDINE 20 MG TABLET PO SCH (09:13)
[2017-09-30] MEDS: BECLOMETHASONE DIPR 40 MCG/PUFF 8.7 GM INHALER IH SCH ×2 (09:13→16:48)
[2017-09-30] MEDS: TIOTROPIUM BROMIDE 18 MCG/INH HANDIHALER [5] IH SCH (09:13)
[2017-09-30] MEDS: PALIPERIDONE 3 MG ER TABLET PO SCH (09:13)
[2017-09-30] MEDS: DIVALPROEX SODIUM 500 MG ER TABLET PO SCH ×2 (09:14→20:03)
[2017-09-30] MEDS: PERPHENAZINE 8 MG TABLET PO SCH ×2 (09:14→16:49)
[2017-09-30 09:49] VITALS: BP 95/58
[2017-09-30 16:39] VITALS: BP 109/74
[2017-09-30 18:50] VITALS: BP 112/75
[2017-09-30] MEDS: LOPERAMIDE HCL 2 MG CAPSULE PO PRN (18:54)
[2017-09-30] MEDS: TraMADol HCL 50 MG TABLET PO PRN (18:55)
[2017-09-30] MEDS: OLANZapine 5 MG TABLET PO SCH (20:03)
[2017-10-01 04:48] VITALS: BP 97/69
[2017-10-01] MEDS: LEVOTHYROXINE SODIUM 50 MCG TABLET PO SCH (06:51)
[2017-10-01 08:00] VITALS: BP 136/70
[2017-10-01] MEDS: FAMOTIDINE 20 MG TABLET PO SCH (09:09)
[2017-10-01] MEDS: DIVALPROEX SODIUM 500 MG ER TABLET PO SCH ×2 (09:09→20:55)
[2017-10-01] MEDS: PERPHENAZINE 8 MG TABLET PO SCH ×2 (09:09→16:21)
[2017-10-01] MEDS: NICOTINE 21 MG/24 HOUR PATCH TD SCH (09:10)
[2017-10-01] MEDS: BECLOMETHASONE DIPR 40 MCG/PUFF 8.7 GM INHALER IH SCH ×2 (09:11→16:21)
[2017-10-01] MEDS: PALIPERIDONE 3 MG ER TABLET PO SCH (09:11)
[2017-10-01] MEDS: TIOTROPIUM BROMIDE 18 MCG/INH HANDIHALER [5] IH SCH (09:12)
[2017-10-01 16:15] VITALS: BP 127/78
[2017-10-01] MEDS: MUPIROCIN CALCIUM 2% 22 GM OINTMENT NASAL SCH (16:21)
[2017-10-01] MEDS: QUEtiapine FUMARATE 100 MG TABLET PO PRN (16:22)
[2017-10-01] MEDS: TraMADol HCL 50 MG TABLET PO PRN ×2 (16:22→23:53)
[2017-10-01 17:15] VITALS: BP 120/88
[2017-10-01] MEDS: OLANZapine 5 MG TABLET PO SCH (20:55)
[2017-10-02] VITALS: BP 128/85
[2017-10-02] MEDS: LEVOTHYROXINE SODIUM 50 MCG TABLET PO SCH (07:06)
[2017-10-02] MEDS: PALIPERIDONE 3 MG ER TABLET PO SCH (08:17)
[2017-10-02] MEDS: CHOLECALCIFEROL (VIT D3) 1,000 UNITS TABLET PO SCH (08:17)
[2017-10-02] MEDS: DIVALPROEX SODIUM 500 MG ER TABLET PO SCH ×2 (08:17→20:32)
[2017-10-02] MEDS: PERPHENAZINE 8 MG TABLET PO SCH ×2 (08:17→16:03)
[2017-10-02] MEDS: FAMOTIDINE 20 MG TABLET PO SCH (08:17)
[2017-10-02] MEDS: ALBUTEROL SULFATE HFA 90 MCG/PUFF 8 GM INHALER IH PRN (08:18)
[2017-10-02] MEDS: NICOTINE 21 MG/24 HOUR PATCH TD SCH (08:19)
[2017-10-02] MEDS: BECLOMETHASONE DIPR 40 MCG/PUFF 8.7 GM INHALER IH SCH ×2 (08:20→16:02)
[2017-10-02] MEDS: MUPIROCIN CALCIUM 2% 22 GM OINTMENT NASAL SCH ×2 (08:20→16:02)
[2017-10-02] MEDS ORDERED: PALIPERIDONE PALMITATE 234 MG/1.5 ML SYRINGE IM ONE (09:00)
[2017-10-02 09:12] VITALS: BP 116/61
[2017-10-02] MEDS: TraMADol HCL 50 MG TABLET PO PRN (09:12)
[2017-10-02] MEDS: TIOTROPIUM BROMIDE 18 MCG/INH HANDIHALER [5] IH SCH (09:34)
[2017-10-02] MEDS: DiphenhydrAMINE HCL 25 MG CAPSULE PO PRN (16:05)
[2017-10-02] MEDS: OLANZapine 5 MG TABLET PO SCH (20:33)
[2017-10-02 21:01] VITALS: BP 130/85
[2017-10-02] MEDS: MAGNESIUM HYDROXIDE SUSPENSION 30 ML UDCUP PO PRN (23:21)
[2017-10-03] MEDS: LEVOTHYROXINE SODIUM 50 MCG TABLET PO SCH (06:59)
[2017-10-03 08:50] VITALS: BP 108/68
[2017-10-03] MEDS: FAMOTIDINE 20 MG TABLET PO SCH (09:52)
[2017-10-03] MEDS: DIVALPROEX SODIUM 500 MG ER TABLET PO SCH ×2 (09:53→20:52)
[2017-10-03] MEDS: PERPHENAZINE 8 MG TABLET PO SCH ×2 (09:53→16:29)
[2017-10-03] MEDS: CHOLECALCIFEROL (VIT D3) 1,000 UNITS TABLET PO SCH (09:53)
[2017-10-03] MEDS: TIOTROPIUM BROMIDE 18 MCG/INH HANDIHALER [5] IH SCH (09:54)
[2017-10-03] MEDS: NICOTINE 21 MG/24 HOUR PATCH TD SCH (09:54)
[2017-10-03] MEDS: MUPIROCIN CALCIUM 2% 22 GM OINTMENT NASAL SCH ×2 (09:55→16:29)
[2017-10-03] MEDS: ALBUTEROL SULFATE HFA 90 MCG/PUFF 8 GM INHALER IH PRN (09:56)
[2017-10-03] MEDS: BECLOMETHASONE DIPR 40 MCG/PUFF 8.7 GM INHALER IH SCH ×2 (09:56→16:29)
[2017-10-03] MEDS: DiphenhydrAMINE HCL 25 MG CAPSULE PO PRN (10:52)
[2017-10-03] MEDS: TraMADol HCL 50 MG TABLET PO PRN ×2 (12:55→21:52)
[2017-10-03 16:27] VITALS: BP 124/80
[2017-10-03] MEDS: ACETAMINOPHEN 325 MG TABLET PO PRN (16:29)
[2017-10-03 19:22] VITALS: BP 121/81
[2017-10-03] MEDS: OLANZapine 5 MG TABLET PO SCH (20:52)
[2017-10-03 21:51] VITALS: BP 120/78
[2017-10-04] MEDS: DiphenhydrAMINE HCL 25 MG CAPSULE PO PRN ×2 (00:07→13:05)
[2017-10-04] MEDS: ACETAMINOPHEN 325 MG TABLET PO PRN (00:07)
[2017-10-04] MEDS: LEVOTHYROXINE SODIUM 50 MCG TABLET PO SCH (06:52)
[2017-10-04] MEDS: FAMOTIDINE 20 MG TABLET PO SCH (08:40)
[2017-10-04] MEDS: MUPIROCIN CALCIUM 2% 22 GM OINTMENT NASAL SCH (08:40)
[2017-10-04] MEDS: PERPHENAZINE 8 MG TABLET PO SCH (08:40)
[2017-10-04] MEDS: NICOTINE 21 MG/24 HOUR PATCH TD SCH (08:40)
[2017-10-04] MEDS: CHOLECALCIFEROL (VIT D3) 1,000 UNITS TABLET PO SCH (08:40)
[2017-10-04] MEDS: DIVALPROEX SODIUM 500 MG ER TABLET PO SCH (08:40)
[2017-10-04] MEDS: TIOTROPIUM BROMIDE 18 MCG/INH HANDIHALER [5] IH SCH (08:41)
[2017-10-04] MEDS: BECLOMETHASONE DIPR 40 MCG/PUFF 8.7 GM INHALER IH SCH (08:41)
[2017-10-04] MEDS ORDERED: PALI234D IM (12:19)
[2017-10-04] MEDS ORDERED: LEVO50TA11 PO (12:22)
[2017-10-04] MEDS ORDERED: VITAD1000 PO (12:22)
[2017-10-04] MEDS ORDERED: MUPI1OIN4 NS (12:23)
[2017-10-04 13:02] VITALS: BP 132/90
[2017-10-04] MEDS: TraMADol HCL 50 MG TABLET PO PRN (13:05)
[2017-10-16] MEDS ORDERED: PALIPERIDONE PALMITATE 234 MG/1.5 ML SYRINGE IM SCH ×2 (09:00)
== END 2017-10-04 14:00 | disposition home or self-care (01) | DRG 885 ==
LOC: EMS 05:22 → 3EI 16:48
PROVIDERS: ADMIT Psychiatry & Neurology Psychiatry; ATTEND Psychiatry & Neurology Child & Adolescent Psychiatry
DX: F25.0 Schizoaffective disorder, bipolar type (principal); Z91.14 Patient's other noncompliance with medication regimen; E03.9 Hypothyroidism, unspecified; E78.5 Hyperlipidemia, unspecified; F17.210 Nicotine dependence, cigarettes, uncomplicated; F41.9 Anxiety disorder, unspecified; G47.00 Insomnia, unspecified; G89.29 Other chronic pain; M54.9 Dorsalgia, unspecified; J44.9 Chronic obstructive pulmonary disease, unspecified; K21.9 Gastro-esophageal reflux disease without esophagitis; Z52.4 Kidney donor; Z79.899 Other long term (current) drug therapy; Z90.49 Acquired absence of other specified parts of digestive tract; Z90.5 Acquired absence of kidney; Z98.84 Bariatric surgery status; Z91.013 Allergy to seafood
CPT/HCPCS: 82306; 83735; 84100; 84439; 84443; 85007; 87081; 94640; 99285; 99406; G0480; J1200; J1885; J2680; J3490; J3535; Q0162